=== PATIENT | male | born 1990 | race Caucasian/White ===

== ENCOUNTER 2018-12-15 07:19 | Inpatient (IN) ==
--- NOTE | 2018-12-15 07:35 | PDOC ---
Abdomen/Flank HPI - General Chief Complaint: Abdomen Pain Stated Complaint: ABDOMINAL PAIN, N/V Date Seen by Provider: 12/15/18 Time Seen by Provider: 07:30 Source: POSITIVE: Patient Exam Limitations: POSITIVE: No limitations Nurse's Notes Reviewed & Considered: Yes - History of Present Illness Initial Comments: This is a well-developed, well-nourished, 28-year-old male, who is complaining of abdominal pain and diarrhea. Patient with a history of Crohn's disease who has been off his medications for one year since December 2017 presents this morning with increasing abdominal pain that's generalized with radiation into his back and increasing diarrhea. He denies any blood in his stool. He's had tactile fevers and chills but denies any sweats. He denies headache, no sore throat, no chest pain or shortness of breath, no cough, he does have generalized abdominal pain as noted above with no nausea or vomiting, no hematuria or dysuria, no rashes, no myalgias or arthralgias, no ataxia. Body Location Affected: REPORTS: Abdomen Timing: REPORTS: Gradual, Getting Worse Duration: <1 week Severity: Severe Quality: REPORTS: Cramping, "Pain" Abdominal Pain Onset Location: REPORTS: Generalized abdomen Abdominal Pain Radiation: REPORTS: Back Context: REPORTS: None Modifying Factors: improves with: Nothing Associated Symptoms: REPORTS: Back pain, Chills, Fever (Tactile fevers), Diarrhea Similar Symptoms Previously: Yes Recent Care Received: REPORTS: Denies Any Prior Injuries Related to Current Complaint?: No - Patient Home Medications Home Medications: Home Medications NK 12/15/18 - Patient Allergies Allergies/Adverse Reactions: Allergies Allergy/AdvReac Type Severity Reaction Status Date / Time No Known Allergies Allergy Unverified 12/15/18 07:25 ROS - Limitations ROS Limitations: No Limitations Constitution: REPORTS: Chills, Fever Cardiovascular: REPORTS: Denies Cardiac Symptoms Respiratory: REPORTS: Denies Resp Symptoms Neurological: REPORTS: Denies Neuro Symptoms Gastrointestinal: REPORTS: Abdominal Pain, Diarrhea Endocrine: REPORTS: Denies Symptoms Musculoskeletal: REPORTS: Back Pain Genitourinary: REPORTS: Denies Symptoms Eyes: REPORTS: Denies Symptoms ENT: REPORTS: Denies Symptoms Skin: REPORTS: Denies Skin Symptoms Lympathic: REPORTS: Denies Lympathic Symptoms Immunologic: POSITIVE: Denies Symptoms Psychiatric: POSITIVE: Denies Psych Symptoms Abdominal/Flank Pain PE - General Appearance General Appearance: POSITIVE: Alert, Cooperative, No Acute Distress, No Evidence of Trauma - HEENT HEENT: POSITIVE: Head Inspection Nml, Eyes Inspection Nml, Ears Inspection Nml, Nose Inspection Nml, Oral/Dental Inspect. Nml, Pharynx Inspect. Nml, PERRL, EOMI - Neck Neck: POSITIVE: Normal Inspection, No Apparent Injury - Respiratory Respiratory: POSITIVE: No Respiratory Distress, Breath Sounds Normal, Chest Non- Tender - Cardiovascular Cardiovascular: POSITIVE: Regular Rate and Rhythm, Heart Sounds Normal, Strong Pulses Peripheral Pulses: Radial (R): 4+ - Chest Chest: POSITIVE: Non Tender - Abdomen Abdomen: Soft: (All Quadrants), Normal Bowel Sounds: (All Quadrants), Denies Tenderness: (All Quadrants), No Splenomegaly: (All Quadrants), No Hepatomegaly: (All Quadrants), No Guarding: (All Quadrants), No Rebound: (All Quadrants), No Palpable Pulse: (All Quadrants), No Palpabale Mass: (All Quadrants), No Distention: (All Quadrants), No Rigidity: (All Quadrants) - Back Back: POSITIVE: Normal Inspection - Skin Skin: POSITIVE: Intact, Normal For Race, Warm, Dry, No Rash - Extremities Extremity: Non-Tender: (All Extremities), Normal ROM: (All Extremities), Normal Inspection: (All Extremities), Pelvis Stable: (All Extremities) - Neurological Neurological: POSITIVE: Affect Apporpriate, Oriented X3, Motor Normal, Sensation Normal - Psychological Psychiatric: POSITIVE: Affect Appropriate, Mood Appropriate Abdomen Progress - Results Reviewed by me Xrays/CTs/US Reviewed by me: Yes Discussed with Radiologist: Yes Lab Results Reviewed by Me: Yes CBC and BMP: 12/15/18 07:44 12/15/18 07:44 - Patient's Progress Pain Medication Addressed: POSITIVE: Yes Re-examine Time: 08:37 Status: POSITIVE: Improved MDM / ED Course: Patient was evaluated, an IV started, blood drawn and sent to the lab for studies, CT of his abdomen and pelvis were ordered. Findings: CBC shows white count of 20.07 hemoglobin and hematocrit are normal, platelets are 386. ESR is 15 and CRP is elevated at 7.1. Blood gases show a pH of 7.35, PCO2 of 44, bicarbonate of 24, and base excess of -2. CMP shows an AST of 17. Amylase is 63 and lipase is 251. Magnesium is 1.7. Lactic acid is 1.3. CT scan shows Crohn flare in the terminal ileum. No perforation, no abscess. Assessment: Acute Crohn's flare. Plan: Patient being admitted by the hospitalist. - Consult Consult (If Yes, Name of Consulting MD & Time Called): Yes (Dr. Irvin at 855 hours.) Consulting MD will see pt:: [place] [facility] [place] Counseled: POSITIVE: Patient, RE: Lab Results, RE: Radiology Results, RE: DX, RE: Need for F/U Patient Care Time - Estimated PCT Patient Care Time (In Minutes): 45 Vital Signs - VS Reviewed Vital Signs Reviewed: Yes Discharge Clinical Impression: Crohn's colitis Discharge Disposition: Admit to Inpatient Condition: Stable Patient Instructions Given at Discharge: Crohn Disease (ED), Acute Abdominal Pain (ED) Follow Up With: NONE,NONE [Primary Care Provider] - Date Decision to Admit to Inpatient: 12/15/18 Time Decision to Admit to Inpatient: 09:08
[2018-12-15] MEDS ORDERED: Sodium Chloride 0.9% 1,000 ML PRIMARY IV ONE (07:37)
[2018-12-15] MEDS ORDERED: ONDANSETRON 4 MG/2 ML VIAL IVP ONE (07:37)
[2018-12-15] MEDS ORDERED: MORPHINE SULFATE 4 MG/1 ML IVP ONE (07:37)
[2018-12-15 07:48] LABS: VENOUS PH 7.35 (7.32-7.42)
[2018-12-15 07:48] LABS: BASOPHILS # (AUTO) 0.05 10*3/UL; BASOPHILS % (AUTO) 0.2 % (0-1); EOSINOPHILS # (AUTO) 0.04 10*3/UL; EOSINOPHILS % (AUTO) 0.2 % (0-8); Hematocrit [HCT] 46.3 % (42.0-52.0); Hemoglobin [HGB] 15.9 g/dL (14.0-18.0); LYMPHOCYTES # (AUTO) 2.13 10*3/uL; MEAN CORPUSCULAR HEMOGLOBIN 26.9 PG (27-31); MEAN CORPUSCULAR HGB CONC 34.3 g/dL (33-37); MEAN CORPUSCULAR VOLUME 78.5 FL (80-90); MONOCYTES # (AUTO) 1.34 10*3/UL (0.3-0.8); MONOCYTES % (AUTO) 6.7 % (5-15); NEUTROPHILS # (AUTO) 16.44 10*3/UL
[2018-12-15 07:57] LABS: PLATELET MORPHOLOGY COMMENT NORMAL MORPHOLOGY (NORM); RBC MORPHOLOGY COMMENT NORMAL MORPHOLOGY (NORM); WBC MORPHOLOGY COMMENT NORMAL MORPHOLOGY (NORM)
[2018-12-15 08:04] LABS: BLOOD UREA NITROGEN 12 mg/dL (7-22); LIPASE 251 IU/L (23-300); SERUM ALBUMIN 4.3 g/dL (3.5-4.8)
[2018-12-15 08:26] LABS: Erythrocyte Sediment Rate 15 MM/HR (0-15)
[2018-12-15] MEDS ORDERED: HYDROmorphone 2 MG/1 ML IVP ONE (08:29)
--- NOTE | 2018-12-15 09:02 | DI ---
CT Abdomen/Pelvis W Contrast,12/15/2018 7:37 AM: Clinical History: Abdominal pain Previous Exam: None at this facility. Findings: Multiple helically acquired CT images are obtained through the abdomen and pelvis following intraveno us menstruation of contrast, and demonstrate thickened small bowel involving the ileum. This involves approximately 30 cm of thickened small bowel. There are multiple mesenteric lymph nodes. There is a trace amount of free fluid within the deep pelv is. The urinary bladder is unremarkable. The liver, gallbladder, spleen, pancreas, adrenals and kidneys are unremarkable. The lung bases are clear. There is some prominent small bowel proximal to the stenosis with some small bowel feces sign consist ent with partial obstruction. The anterior abdominal wall and subcutaneous fat is normal. Skeletal structures are unremarkable. Impression: 30 cm of thickened/inflamed ileum with proximal dilation and small bowel feces sign. There is also so me inflammatory fluid within the deep pelvis.
[2018-12-15] MEDS ORDERED: ONDANSETRON 4 MG/2 ML VIAL IVP PRN (09:39)
[2018-12-15] MEDS ORDERED: DOCUSATE 100 MG CAPSULE PO PRN (09:39)
[2018-12-15] MEDS ORDERED: HYDROmorphone 2 MG/1 ML IVP PRN (09:39)
[2018-12-15] MEDS ORDERED: CALCIUM CARBONATE 500 MG (TUMS) CHEWABLE TABLET PO PRN (09:39)
[2018-12-15] MEDS ORDERED: ACETAMINOPHEN 325 MG TABLET PO PRN (09:39)
[2018-12-15] MEDS ORDERED: methylPREDNISolone 40 MG/1 ML VIAL IVP SCH (09:39)
[2018-12-15] MEDS ORDERED: LIDOCAINE W/ SODIUM BICARB 0.5 ML SYR SUBD PRN (09:39)
[2018-12-15] MEDS: SULFASALAZINE 500 MG TABLET PO SCH ×4 (10:32→20:29)
[2018-12-15] MEDS: Sodium Chloride 0.9% 1,000 ML PRIMARY IV SCH ×2 (11:01→18:32)
[2018-12-15] MEDS ORDERED: oxyCODONE IR Tab 5 MG TAB PO PRN (13:34)
--- NOTE | 2018-12-15 17:07 | PDOC ---
HPI - History of Present Illness Date of Service: 12/15/18 Time of Service: 12:00 Chief Complaint: Abdominal pain History of Present Illness: This very pleasant with central male with a known history of Crohn's disease that was diagnosed around 2014 in [facility]. He had initially manage this with the ordnance engineer in [place] as he moves around in his job frequently. 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 He was managed on Remicade and did very well but about a year ago stopped that due to shifting locations and work and not being able to establish with another ordnance engineer. He states that he has been here for about 12 weeks, and action called to schedule an appointment with his ordnance engineer in [place], but about 5 days ago, came down with abdominal pain that was quite severe. He had nausea and diarrhea. No vomiting. He denies fevers or chills. The pain was just too intense and he came in for evaluation today. A CT scan of the abdomen and pelvis showed a large portion of the ileum inflamed. I spoke with surgery who saw the patient, and they did not feel that the fecal material was overly obstructive and they did not feel that he would need surgery. The patient's white count was elevated at over 20,000. He does not have a local primary care physician. In the emergency room, Dilaudid did help this pain. He has not been on any recent antibiotics and he does not take probiotics. Past Medical History Medical History: 1. Crohn's disease Surgical History: 1. Prior colonoscopy Pertinent Family History: No history of bowel disease in the family. Father has hypertension. Mother has severe scoliosis Past Social History: Smokes half a pack to pack per day. No alcohol. Not , no children, works in [employer] as discussed above already Tobacco Use: Current Every Day Smoker In the Past 12 Months, Have Used or Abuse Any of the Following Substance: None Alcohol Use: None Medication / Allergies Home Medications: Home Medications Medication Instructions Recorded Confirmed Type Multivitamin Tab [MVI Tab] 1 ea PO DAILY 12/15/18 12/15/18 History Allergies/Adverse Reactions: Allergies Allergy/AdvReac Type Severity Reaction Status Date / Time No Known Allergies Allergy Verified 12/15/18 09:51 Review of Systems - Review of Systems All Systems: Reviewed & No Additional Complaints Except as Stated (I did a 12 point review systems and it was negative other than that discussed below and in the history of present illness.) Exam - Vitals Vital Signs: Vital Signs Temperature 98.2 F Temperature Source Oral Pulse Rate [Pulse Oximeter] 93 Pulse Rate 89 Respiratory Rate 16 Blood Pressure [Right Arm] 111/66 Blood Pressure [Left Arm] 147/105 Blood Pressure 116/65 Pulse Ox 94 Oxygen Delivery Method Room Air Height 6 ft Weight 191 lb 3.2 oz - General General Appearance: No Acute Distress, Cooperative - Head Head Exam: Normal Inspection, Normocephalic, Atraumatic - Eye Eye Exam: POSITIVE: No Scleral Icterus - ENT ENT Exam: POSITIVE: Mucous Membranes Moist - Neck Neck Exam: Normal Inspection, No Tenderness, No Lymphadenopathy, No Thyromegaly, JVP is not Raised - Respiratory Respiratory Exam: POSITIVE: Clear to Auscultation - Bilaterally, Breathing Non Labored, Normal to Percussion and Palpation - Cardiovascular Cardiovascular Exam: POSITIVE: RRR, No Murmur, No Clicks, No Gallops, No Rubs, No JVD - GI/Abdominal GI/Abdominal Exam: POSITIVE: Normal Bowel Sounds, Non Distended, Soft Additional GI/Abdominal Exam Details: Tender to palpation but nonsurgical abdomen - Rectal Rectal Exam: POSITIVE: Deferred - External Exam: POSITIVE: Deferred Exam: POSITIVE: Deferred - Extremities Extremities Exam: POSITIVE: No Clubbing Present, No Edema Present, No Cyanosis Present - Back Back Exam: POSITIVE: No CVA Tenderness - Neurological Neurological Exam: POSITIVE: Alert, Oriented x 3, No Facial Droop, Speech Intact / Clear, Moves All Extremities Equally - Psychiatric Psychiatric Exam: POSITIVE: Normal Affect, Normal Mood Results - Labs CBC and BMP: 12/15/18 07:44 12/15/18 07:44 - Imaging Status: Image Reviewed by Me (I looked at the CT scan with the emergency room physician also read the radiology report. There is inflammatory changes in the small bowel. No perforation.) Assessment and Plan - Patient Problems (1) Crohn's disease (regional enteritis) Current Visit: Yes Status: Acute Code(s): K50.90 - Crohn's disease, unspeci fied, without complications Qualifiers: Gastrointestinal tract location: small intestine Digestive disease complication type: unspecified complication Qualified Code(s): K50.019 - Crohn's disease of small intestine with unspecified complications (2) Tobacco abuse Current Visit: Yes Status: Acute Code(s): Z72.0 - Tobacco use - Assessment / Plan Additional Assessment/Plan Details: I'll admit the patient. Check labs in a.m. including white blood cell count. I reviewed the [place] [employer] statement paper on management of Crohn's disease from January 2018, and it is clear that at this time antibiotics are typically not recommended in acute flares or worsening of Crohn's disease exacerbations. It was recommended that steroids and sulfasalazine be used for moving a patient from an exacerbated state to state of control at which point the patient could hopefully go back on Remicade or some other medication that fits his lifestyle with his job to a better degree. Therefore, I started Solu-Medrol 60 mg IV daily, and sulfasalazine at a gram every 6 hours. We will initially use a clear liquid diet if the patient does well with this hopefully advance his diet in the next day or 2. We have ordered stool studies that are pending. IV medications for pain. Anti-inflammatories are felt to worsen Crohn's disease symptoms so we will hold off on anti-inflammatories. Smoking cessation education was provided at bedside by myself. Ultimately it is my hope that the patient will quit smoking as it may help reduce flares of Crohn's disease. Surgery consultation has already discussed. The CT scan was read as partial obstruction due to "positive fecal sign "I spoke to the radiologist about this, and this is not a true obstruction. Plan above discussed with patient and he agreed.
[2018-12-16] MEDS: Sodium Chloride 0.9% 1,000 ML PRIMARY IV SCH ×3 (02:40→18:46)
[2018-12-16 05:22] LABS: BASOPHILS # (AUTO) 0.01 10*3/UL; BASOPHILS % (AUTO) 0.1 % (0-1); EOSINOPHILS # (AUTO) 0 10*3/UL; EOSINOPHILS % (AUTO) 0 % (0-8); Hemoglobin [HGB] 13.3 g/dL (14.0-18.0); LYMPHOCYTES # (AUTO) 1.73 10*3/uL; MEAN CORPUSCULAR HEMOGLOBIN 26.4 PG (27-31); MEAN CORPUSCULAR HGB CONC 33.3 g/dL (33-37); MEAN CORPUSCULAR VOLUME 79.5 FL (80-90); MONOCYTES # (AUTO) 0.76 10*3/UL (0.3-0.8); MONOCYTES % (AUTO) 4.7 % (5-15); NEUTROPHILS # (AUTO) 13.66 10*3/UL; NEUTROPHILS % (AUTO) 84.1 % (50-80); RED BLOOD COUNT 5.03 10^6/uL (4.70-6.10)
[2018-12-16 05:42] LABS: PLATELET MORPHOLOGY COMMENT NORMAL MORPHOLOGY (NORM); RBC MORPHOLOGY COMMENT NORMAL MORPHOLOGY (NORM); WBC MORPHOLOGY COMMENT NORMAL MORPHOLOGY (NORM)
[2018-12-16 06:16] LABS: BLOOD UREA NITROGEN 9 mg/dL (7-22); BUN/CREATININE RATIO 11.25 (6-20)
[2018-12-16] MEDS ORDERED: methylPREDNISolone 40 MG/1 ML VIAL IVP SCH (09:00)
[2018-12-16] MEDS ORDERED: methylPREDNISolone 125 MG/2 ML VIAL IVP SCH (09:00)
[2018-12-16] MEDS: SULFASALAZINE 500 MG TABLET PO SCH ×4 (09:52→21:02)
[2018-12-16] MEDS ORDERED: CYANOCOBALAMIN 1000 MCG/1 ML VIAL IM ONE (10:08)
[2018-12-16] MEDS ORDERED: predniSONE Tab 20 MG TAB PO SCH (11:15)
--- NOTE | 2018-12-16 13:39 | PDOC(PROG) ---
Date of Service: 12/16/18 Time of Service: 10:30 Interval History: No chest pain, no shortness breath, nausea and vomiting have improved. Abdominal pain is better. Had one episode of "mushy" bowel movement but diarrhea seems to be improving. Very hesitant to do anything beyond a clear liquid diet. Objective : Data - Labs CBC and BMP: 12/16/18 05:00 12/16/18 05:00 Objective : Exam - General General Appearance: No Acute Distress, Cooperative Additional General Exam Details: Vital Signs - Last Taken Temperature 98.4 F 12/16/18 12:20 Pulse Rate 91 12/16/18 12:20 Respiratory Rate 16 12/16/18 12:20 Blood Pressure 107/65 12/16/18 12:20 Pulse Ox 95 12/16/18 12:20 - Eye Eye Exam: No Scleral Icterus - ENT ENT Exam: Mucous Membranes Moist - Neck Neck Exam: JVP is not Raised - Respiratory Respiratory Exam: Clear to Auscultation - Bilaterally, Breathing Non Labored - Cardiovascular Cardiovascular Exam: RRR, No Murmur, No Clicks, No Gallops, No Rubs, No JVD - GI/Abdominal GI/Abdominal Exam: Normal Bowel Sounds, Non Distended, Soft Additional GI/Abdominal Exam Details: Very minimal jenna-umbilical tenderness - Extremities Extremities Exam: No Clubbing Present, No Edema Present, No Cyanosis Present - Neurological Neurological Exam: Alert, Oriented x 3, No Facial Droop, Speech Intact / Clear, Moves All Extremities Equally - Psychiatric Psychiatric Exam: Normal Affect, Normal Mood Assessment and Plan - Patient Problems (1) Crohn's disease (regional enteritis) Current Visit: Yes Status: Acute Code(s): K50.90 - Crohn's disease, unspecified, without complications Qualifiers: Gastrointestinal tract location: small intestine Digestive disease complication type: unspecified complication Qualified Code(s): K50.019 - Crohn's disease of small intestine with unspecified complications (2) Tobacco abuse Current Visit: Yes Status: Acute Code(s): Z72.0 - Tobacco use - Assessment / Plan Additional Assessment/Plan Details: Continue steroids and sulfasalazine Advance diet. If patient can tolerate by mouth diet, and by mouth steroids, we could consider discharge tomorrow, and I am encouraged by the white blood cell count decreasing. Continue to hold off from Flagyl. We talked about smoking cessation, and the patient is contemplative and is deve loping a plan to quit smoking. Check labs in a.m.
[2018-12-17] MEDS: Sodium Chloride 0.9% 1,000 ML PRIMARY IV SCH ×2 (02:51→12:42)
[2018-12-17 05:25] LABS: BASOPHILS # (AUTO) 0.02 10*3/UL; BASOPHILS % (AUTO) 0.2 % (0-1); EOSINOPHILS # (AUTO) 0.01 10*3/UL; EOSINOPHILS % (AUTO) 0.1 % (0-8); Hematocrit [HCT] 43.2 % (42.0-52.0); Hemoglobin [HGB] 14.1 g/dL (14.0-18.0); LYMPHOCYTES # (AUTO) 2.35 10*3/uL; MEAN CORPUSCULAR HEMOGLOBIN 26.2 PG (27-31); MEAN CORPUSCULAR HGB CONC 32.6 g/dL (33-37); MEAN CORPUSCULAR VOLUME 80.3 FL (80-90); MEAN PLATELET VOLUME 10.5 FL (7.4-12.2); MONOCYTES # (AUTO) 0.65 10*3/UL (0.3-0.8); NEUTROPHILS # (AUTO) 9.99 10*3/UL; NEUTROPHILS % (AUTO) 76.3 % (50-80); RED BLOOD COUNT 5.38 10^6/uL (4.70-6.10)
[2018-12-17 05:28] LABS: PLATELET MORPHOLOGY COMMENT NORMAL MORPHOLOGY (NORM); RBC MORPHOLOGY COMMENT NORMAL MORPHOLOGY (NORM); WBC MORPHOLOGY COMMENT NORMAL MORPHOLOGY (NORM)
[2018-12-17 05:38] LABS: BLOOD UREA NITROGEN 11 mg/dL (7-22); BUN/CREATININE RATIO 13.75 (6-20)
[2018-12-17 07:52] VITALS: BP 106/58; RESP 16; TEMP 97; O2SAT 98
[2018-12-17] MEDS: SULFASALAZINE 500 MG TABLET PO SCH (08:37)
[2018-12-17] MEDS ORDERED: Multivitamin Tab 1 TAB PO SCH (09:00)
[2018-12-17] MEDS ORDERED: predniSONE Tab 20 MG TAB PO SCH (09:00)
--- NOTE | 2018-12-17 11:55 | DCSUMMARY ---
Hospitalization Summary Admit Date: 12/15/2018 Discharge Date: 12/17/18 Primary Diagnosis:: Crohn's disease exacerbation Hospital Course: This very pleasant 38 year old male that presented with abdominal pain, diarrhea, and was found to have inflammation in his distal ileum, about 30 cm worth. He had a "positive fecal sign" consistent with partial small bowel obstruction, but he never did progress into a full bowel obstruction. We were able to allow the patient to eat, and he had bowel movements, and his diarrhea slowed down with steroids, sulfasalazine, and fluids. GI workup does show C. difficile toxin present, on PCR testing. However, it was negative in terms of his YADI study. I do not think this is indicative of an infection with C. difficile. Arguing against C. difficile infection as the following: The inflammation is in the small intestine and typically C. difficile infections or in the colon. This resolved very quickly. No antibiotics were used. This is actually consistent with the [place] [employer] statement paper on management of Crohn's disease exacerbations. 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 Overall, the patient is improved significantly, has no chest pain, no shortness of breath, no nausea or vomiting, is abdominal pain is resolved and he is ready to go home. Diarrhea resolved into "mushy" stool. He has follow-up with a casserole preparer in [place] that he sees down there. Assessment and Plan: 1. As per discharge assessments noted 2. Disposition: Patient is discharged home. 3. Condition on discharge, stable and improved. 4. Diet: regular diet 5. Activities: resume normal activities 6. Follow-Up: 1. Follow with your primary casserole preparer 7. Medications at the Time of Discharge: Home Medications Medication Instructions Recorded Confirmed Type Cyanocobalamin (Vitamin B-12) 2,500 mcg PO DAILY #30 tablet 12/17/18 Rx [Vitamin B12] Multivitamin with Folic Acid [Sm 400 mcg PO DAILY #30 tablet 12/17/18 Rx One Daily Multivitamin Tab] Sulfasalazine 1,000 mg PO QID #240 tablet 12/17/18 Rx oxyCODONE IR Tab [OxyIR Tab] 5 mg PO Q6H PRN #15 tab 12/17/18 Rx predniSONE Tab [Deltasone Tab] 10 mg PO DAILY #30 tab 12/17/18 Rx 8. Time, care, counseling and coordination of care for this discharge is less than 30 minutes. Exam - Vitals Vital Signs: Vital Signs Temperature 97 F Temperature Source Temporal Artery Scan Pulse Rate [Pulse Oximeter] 107 Pulse Rate 89 Respiratory Rate 16 Blood Pressure [Right Arm] 106/58 Blood Pressure [Left Arm] 147/105 Blood Pressure 116/65 Pulse Ox 98 Oxygen Delivery Method Room Air Height 6 ft Weight 182 lb - General General Appearance: No Acute Distress, Cooperative - Eye Eye Exam: POSITIVE: No Scleral Icterus - ENT ENT Exam: POSITIVE: Mucous Membranes Moist - Neck Neck Exam: JVP is not Raised - Respiratory Respiratory Exam: POSITIVE: Clear to Auscultation - Bilaterally, Breathing Non Labored - Cardiovascular Cardiovascular Exam: POSITIVE: RRR, No Murmur, No Clicks, No Gallops, No Rubs, No JVD - GI/Abdominal GI/Abdominal Exam: POSITIVE: Normal Bowel Sounds, Non Tender, Non Distended, Soft - Extremities Extremities Exam: POSITIVE: No Clubbing Present, No Edema Present, No Cyanosis Present - Neurological Neurological Exam: POSITIVE: Alert, Oriented x 3, No Facial Droop, Speech Intact / Clear, Moves All Extremities Equally Data Peritnent Studies: 12/15/18 12/15/18 12/16/18 07:39 07:44 05:00 WBC 20.07 H Hgb Hct Plt Count ESR 15 VBG pH 7.35 VBG pCO2 44 L VBG HCO3 24 VBG Base Excess -2 Sodium Potassium Chloride Carbon Dioxide Anion Gap BUN Creatinine BUN/Creatinine Ratio Glucose 90 Calcium Vitamin B12 Serum Folate 12/16/18 12/17/18 12/17/18 05:00 04:40 04:40 WBC 13.07 H Hgb 14.1 Hct 43.2 Plt Count 364 H ESR VBG pH VBG pCO2 VBG HCO3 VBG Base Excess Sodium 145 Potassium 4.5 Chloride 108 Carbon Dioxide 27 Anion Gap 10 BUN 11 Creatinine 0.8 BUN/Creatinine Ratio 13.75 Glucose 69 L Calcium 9.7 Vitamin B12 295 Serum Folate 11.6 Procedures: [address] [facility] [place] [id number] PH: DD: [phone] FAX: [phone] ~DIAGNOSTIC IMAGING REPORT~ Patient: HUAN HECK : 1990 Sex: M Age: 28 Exam Name: CT Abdomen/Pelvis W Contrast Exam Date: 12/15/18 Report # : [id number] CPT Code: 13838 EMR/MR #: [id number] Ordering: Blanco You Admiting: Primary: NONE,NONE Attending: Signed CT Abdomen/Pelvis W Contrast,12/15/2018 7:37 AM: Clinical History: Abdominal pain Previous Exam: None at this facility. Findings: Multiple helically acquired CT images are obtained through the abdomen and pelvis following intravenous menstruation of contrast, and demonstrate thickened small bowel involving the ileum. This involves approximately 30 cm of thickened small bowel. There are multiple mesenteric lymph nodes. There is a trace amount of free fluid within the deep pelvis. The urinary bladder is unremarkable. The liver, gallbladder, spleen, pancreas, adrenals and kidneys are unremarkable. The lung bases are clear. There is some prominent small bowel proximal to the stenosis with some small bowel feces sign consistent with partial obstruction. The anterior abdominal wall and subcutaneous fat is normal. Skeletal structures are unremarkable. Impression: 30 cm of thickened/inflamed ileum with proximal dilation and small bowel feces sign. There is also some inflammatory fluid within the deep pelvis. Dictated By: 12/15/18 0849 HUSSAIN GRIGGS MD. Signed By: 12/15/18 0902 HUSSAIN GRIGGS MD. Patient Problems - Patient Problem List (1) Crohn's disease (regional enteritis) Current Visit: Yes Status: Acute Code(s): K50.90 - Crohn's disease, unspecified, without complications Qualifiers: Gastrointestinal tract location: small intestine Digestive disease complication type: unspecified complication Qualified Code(s): K50.019 - Cr ohn's disease of small intestine with unspecified complications Category: Medical (2) Tobacco abuse Current Visit: Yes Status: Acute Code(s): Z72.0 - Tobacco use Category: Medical
== END 2018-12-17 12:47 | disposition home or self-care (01) | DRG 387 ==
LOC: ER 07:19 → MED/SURG 09:43
PROVIDERS: ADMIT Family Medicine; ATTEND Family Medicine